=== PATIENT | male | born 1980 | race African-American/Black ===

== ENCOUNTER 2019-02-11 06:30 | Inpatient (IN) | payer BC ==
[2019-02-03 14:54] LABS: BASOPHILS % (AUTO) 0.9 % (0.0-2.0); EOSINOPHILS % (AUTO) 1.9 % (1.0-6.0); HEMATOCRIT 45.8 % (41-53); HEMOGLOBIN 15.2 g/dL (13.5-17.5); LYMPHOCYTES % (AUTO) 32.8 % (22.0-44.0); MEAN CORPUSCULAR HEMOGLOBIN 28.8 pg (26.0-34.0); MEAN CORPUSCULAR HGB CONC 33.3 G/dL (31.0-37.0); MEAN CORPUSCULAR VOLUME 87 fL (80-100); MONOCYTES # (AUTO) 0.4 K/uL (0.1-1.0); MONOCYTES % (AUTO) 6.5 % (2.0-9.0); NEUTROPHILS # (AUTO) 3.5 K/uL (1.8-7.7); NEUTROPHILS % (AUTO) 57.9 % (40.0-70.0); PLATELET COUNT (AUTO) 212 K/uL (150-450); RED BLOOD CELL COUNT(AUTO) 5.28 MIL/uL (4.50-5.90); RED CELL DISTRIBUTION WIDTH 13.2 % (11.5-14.5)
[2019-02-03 15:12] LABS: PROTHROMBIN TIME 10.4 SEC (9.4-11.6)
[2019-02-03 15:34] LABS: ANION GAP 10 mmol/L (8-16); CALCIUM, TOTAL 9.6 mg/dL (8.8-10.5); CARBON DIOXIDE 29 mmol/L (22-29); CHLORIDE 99 mmol/L (98-107); CREATININE 1.05 mg/dL (0.60-1.30); GLOMERULAR FILTR. RATE CALC > 60 mL/min (>60); GLUCOSE,RANDOM 110 mg/dL (70-110); POTASSIUM 3.2 mmol/L (3.5-5.1); SODIUM SERUM 138 mmol/L (136-145); UREA NITROGEN, BLOOD 12 mg/dL (7-18)
[2019-02-03 15:40] LABS: ALANINE AMINOTRANSFERASE 22 U/L (12-78); ALBUMIN 4.3 g/dL (3.4-5.0); ALKALINE PHOSPHATASE 55 U/L (46-116); ASPARTATE AMINOTRANSFERASE 16 U/L (15-37); BILIRUBIN,TOTAL 0.4 mg/dL (0.1-1.0)
[~2019-02-11] VITALS: Ht 190.5 cm; Wt 126.0 kg
[~2019-02-11 06:30] MED LIST: ALBU8HFA IH; CHOL100018 PO; CeFAZolin 2 GM/DEXTROSE 50 ML IV ONE; ELVI1TAB3 PO; HYDR25TA PO; PERCT10 PO; RINGERS SOLUTION,LACTATED 1,000 ML IV ONE
[2019-02-11] MEDS ORDERED: LIDOCAINE/PF 2% 5 ML VIAL IM ONE (06:31)
[2019-02-11] MEDS ORDERED: SUCCINYLCHOLINE CHLORIDE 20 MG/ML 10 ML VIAL IVP ONE (06:31)
[2019-02-11] MEDS ORDERED: MIDAZOLAM HCL 2 MG/2 ML VIAL IVP ONE (06:31)
[2019-02-11] MEDS ORDERED: FentaNYL CITRATE-PF 100 MCG/2 ML VIAL IVP ONE (06:31)
[2019-02-11] MEDS ORDERED: PROPOFOL 1% 20 ML VIAL IVP ONE (06:31)
[2019-02-11] MEDS ORDERED: ONDANSETRON HCL 4 MG/2 ML VIAL IVP ONE (06:31)
[2019-02-11] MEDS ORDERED: ROCURONIUM BROMIDE 10 MG/ML 5 ML VIAL IVP ONE (06:31)
[2019-02-11] MEDS ORDERED: HYDROmorphone 2 MG/ML SYRINGE IVP ONE (06:31)
[2019-02-11] MEDS ORDERED: CeFAZolin 2 GM/DEXTROSE 50 ML IV ONE (07:00)
[2019-02-11] MEDS ORDERED: RINGERS SOLUTION,LACTATED 1,000 ML IV ONE (07:00)
[2019-02-11] MEDS ORDERED: VANCOMYCIN HCL 1 GM/VIAL ONE (07:03)
[2019-02-11] MEDS ORDERED: BUPIVACAINE HCL/PF 0.5% 30 ML VIAL ONE (07:03)
[2019-02-11] MEDS ORDERED: BUPIVACAINE LIPOSOME/PF 1.3%-13.3MG/ML SUSPENSION 20 ML VIAL INJ ONE (07:15)
[2019-02-11] MEDS ORDERED: BUPIVACAINE LIPOSOME/PF 1.3%-13.3MG/ML SUSPENSION 10 ML VIAL INJ STA (07:53)
[2019-02-11] MEDS ORDERED: ONDANSETRON HCL 4 MG/2 ML VIAL IVP PRN (11:00)
[2019-02-11] MEDS ORDERED: BENZOCAINE/MENTHOL LOZENGE PO PRN (11:00)
[2019-02-11 12:00] VITALS: BP 130/88
[2019-02-11] MEDS: ACETAMINOPHEN 1000 MG/ISO-OSM 100 ML IV SCH ×2 (12:19→20:13)
[2019-02-11] MEDS: CYCLOBENZAPRINE HCL 10 MG TABLET PO PRN (14:47)
[2019-02-11] MEDS: HYDROmorphone 2 MG/ML SYRINGE IVP PRN ×2 (15:21→20:13)
[2019-02-11 15:33] VITALS: BP 132/85
[2019-02-11] MEDS: CeFAZolin 1 GM/DEXTROSE 50 ML IV SCH (16:35)
[2019-02-11 19:40] VITALS: BP 128/74
[2019-02-11] MEDS: DOCUSATE SODIUM 100 MG CAPSULE PO SCH (20:13)
[2019-02-11 23:37] VITALS: BP 108/61
[2019-02-12] MEDS: CeFAZolin 1 GM/DEXTROSE 50 ML IV SCH (01:08)
[2019-02-12] MEDS ORDERED: SODIUM CHLORIDE 0.9% 250 ML IV ONE (01:15)
[2019-02-12] MEDS: HYDROmorphone 2 MG/ML SYRINGE IVP PRN ×2 (01:18→05:57)
[2019-02-12 05:09] VITALS: BP 108/54
[2019-02-12 06:44] LABS: BASOPHILS % (AUTO) 0.5 % (0.0-2.0); EOSINOPHILS % (AUTO) 2.8 % (1.0-6.0); HEMOGLOBIN 14.1 g/dL (13.5-17.5); LYMPHOCYTES # (AUTO) 1.9 K/uL (1.0-4.8); LYMPHOCYTES % (AUTO) 28.4 % (22.0-44.0); MEAN CORPUSCULAR HGB CONC 32.9 G/dL (31.0-37.0); MEAN CORPUSCULAR VOLUME 88 fL (80-100); MONOCYTES # (AUTO) 0.4 K/uL (0.1-1.0); MONOCYTES % (AUTO) 6.7 % (2.0-9.0); NEUTROPHILS % (AUTO) 61.6 % (40.0-70.0); PLATELET COUNT (AUTO) 199 K/uL (150-450); RED BLOOD CELL COUNT(AUTO) 4.87 MIL/uL (4.50-5.90); RED CELL DISTRIBUTION WIDTH 13.2 % (11.5-14.5)
[2019-02-12 06:56] LABS: ANION GAP 7 mmol/L (8-16); CALCIUM, TOTAL 8.5 mg/dL (8.8-10.5); CARBON DIOXIDE 29 mmol/L (22-29); CHLORIDE 105 mmol/L (98-107); CREATININE 0.91 mg/dL (0.60-1.30); GLOMERULAR FILTR. RATE CALC > 60 mL/min (>60); GLUCOSE,RANDOM 83 mg/dL (70-110); POTASSIUM 3.8 mmol/L (3.5-5.1); SODIUM SERUM 141 mmol/L (136-145); UREA NITROGEN, BLOOD 6 mg/dL (7-18)
[2019-02-12 07:34] VITALS: BP 121/73
[2019-02-12] MEDS: DOCUSATE SODIUM 100 MG CAPSULE PO SCH (08:35)
[2019-02-12] MEDS: OxyCODONE HCL/ACETAMINOPHEN 10-325 MG TABLET PO PRN ×2 (11:30→14:42)
[2019-02-12] MEDS: CYCLOBENZAPRINE HCL 10 MG TABLET PO PRN (12:45)
[2019-02-12 14:50] VITALS: BP 108/60
[2019-02-12 15:36] VITALS: BP 110/60
== END 2019-02-12 16:15 | disposition home or self-care (01) | DRG 517 ==
LOC: 4E 06:30 → OBSVTOIN 06:31
PROVIDERS: ADMIT Orthopaedic Surgery Orthopaedic Surgery of the Spine; ATTEND Orthopaedic Surgery Orthopaedic Surgery of the Spine
PROC: 01NB0ZZ Release Lumbar Nerve, Open Approach (ICD-10-PCS; principal; 2019-02-11 09:15)
DX: M48.061 Spinal stenosis, lumbar region without neurogenic claudication (principal)
CPT/HCPCS: 87081; 93005; 97116; 97162; 97165; 97535; C9290; G0238; G0378; J0131; J0330; J0690; J1170; J2250; J2405; J2704; J3010; J3370; J3490; J7050; J7120